=== PATIENT | male | born 1970 | race Caucasian/White ===

== ENCOUNTER 2016-07-25 12:09 | Inpatient (IN) | payer BC ==
[~2016-07-25] VITALS: Ht 177.8 cm; Wt 66.7 kg
[2016-07-25 12:23] VITALS: BP 177/98
--- NOTE | 2016-07-25 12:36 | NUR ---
Patient ambualted to bed 6.
[2016-07-25] MEDS ORDERED: fentaNYL 0.05 MG/ML VIAL IVP ONE (12:40)
--- NOTE | 2016-07-25 12:44 | NUR ---
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 EVEN AND UNLABORED,LAB AT BEDSIDE AT THIS TIME
--- NOTE | 2016-07-25 12:51 | NUR ---
xray at bedside
[2016-07-25 12:56] LABS: BASOPHILS # (AUTO) 0.1 K/uL (0.00-0.22); BASOPHILS % (AUTO) 0.9 % (0.0-2.0); EOSINOPHILS # (AUTO) 0.5 K/uL (0-0.4); EOSINOPHILS % (AUTO) 5.1 % (0.0-4.0); HEMATOCRIT 34.9 % (36-52); HEMOGLOBIN 11.8 g/dL (12.0-18.0); LYMPHOCYTES # (AUTO) 1.8 K/uL (2.0-11.5); LYMPHOCYTES % (AUTO) 19.5 % (20.5-51.1); MEAN CORPUSCULAR HEMOGLOBIN 28 pg (27-31); MEAN CORPUSCULAR HGB CONC 34 g/dL (33-37); MEAN CORPUSCULAR VOLUME 84 fL (80-94); MONOCYTES # (AUTO) 0.8 K/uL (0.8-1.0); MONOCYTES % (AUTO) 8.4 % (1.7-9.3); NEUTROPHILS % (AUTO) 66.1 % (42.2-75.2); PLATELET COUNT (AUTO) 227 K/uL (140-450); RED BLOOD CELL COUNT(AUTO) 4.17 MIL/uL (4.20-6.10); RED CELL DISTRIBUTION WIDTH 13.4 % (11.6-13.7); WHITE BLOOD COUNT (AUTO) 9.2 K/uL (4.8-10.8)
[2016-07-25 13:12] LABS: ANION GAP 14.2 (8-16); CALCIUM 9.4 mg/dL (8.5-10.1); CARBON DIOXIDE 25.7 mmol/L (21-32); CREATININE 1.4 mg/dL (0.6-1.3); POTASSIUM 3.9 mmol/L (3.5-5.1)
[2016-07-25] MEDS ORDERED: ASPIRIN 325 MG TAB PO ONE (13:15)
[2016-07-25 13:17] LABS: ALBUMIN 3.3 g/dL (3.4-5.0); TOTAL BILIRUBIN 0.6 mg/dL (0.0-1.0); TOTAL PROTEIN, SERUM 7.2 g/dL (6.4-8.2)
[2016-07-25] MEDS ORDERED: NACL 0.9% 1,000 ML IV SCH (13:17)
[2016-07-25] MEDS ORDERED: ACETAMINOPHEN 325 MG TAB PO PRN (13:20)
[2016-07-25] MEDS ORDERED: HYDROcodone/APAP 5/325 MG 1 TAB TAB PO PRN (13:20)
[2016-07-25] MEDS ORDERED: ONDANSETRON 4 MG/2 ML VIAL IVP PRN (13:20)
[2016-07-25] MEDS ORDERED: MORPHINE SULFATE 2 MG/ML SYR IVP PRN (13:20)
[2016-07-25] MEDS ORDERED: NITROGLYCERIN 0.4 MG TAB SL PRN (13:20)
[2016-07-25 13:23] LABS: INR 1.2 (0.8-1.2); PARTIAL THROMBOPLASTIN TIME 27.6 secs (22-35.6); PROTHROMBIN TIME 10.9 secs (10.8-13.4)
--- NOTE | 2016-07-25 13:29 | NUR ---
PT AAO, NO C/O PAIN NOTED.
--- NOTE | 2016-07-25 13:42 | NUR ---
DR. SARGENT AWARE PT WANTS TO TALK TO HIM
[2016-07-25] MEDS ORDERED: LISINOPRIL 10 MG TAB PO SCH (14:00)
[2016-07-25] MEDS ORDERED: ATORVASTATIN 20 MG TAB PO SCH (14:00)
[2016-07-25] MEDS ORDERED: METOPROLOL 25 MG TAB PO SCH ×2 (14:00→21:00)
--- NOTE | 2016-07-25 14:52 | NUR ---
report given to ry jeter will be transfer to tele
--- NOTE | 2016-07-25 15:00 | NUR ---
PT ARRIVED TO UNIT FROM ER VIA [facility]. AAOX4, ON ROOM AIR, SKIN INTACT. IV TO LEFT WRIST 22G, SKIN INTACT. INITIAL ASSESSMENT COMPLETED. REVIEWED PLAN OF CARE WITH PT, PT VERBALIZED UNDERSTANDING. ALL SAFETY NEEDS MET. CALL LIGHT WITHIN REACH. WILL CONTINUE TO MONITOR.
[2016-07-25] MEDS ORDERED: METF500T PO (15:05)
[2016-07-25] MEDS ORDERED: ATOR10TA PO (15:05)
[2016-07-25 15:10] VITALS: BP 162/96
[2016-07-25] MEDS ORDERED: DEXTROSE 50% 50 ML SYR IVP PRN (15:55)
[2016-07-25] MEDS ORDERED: INSULIN LISPRO SLIDING SCALE 100 UNITS/ML VIAL SUBQ PRN (15:55)
[2016-07-25 16:00] VITALS: BP 163/94
[2016-07-25] MEDS ORDERED: FUROSEMIDE 40 MG/4 ML VIAL IVP SCH (16:10)
[2016-07-25] MEDS: LISINOPRIL 5 MG TAB PO SCH (16:11)
[2016-07-25] MEDS: BLOOD GLUCOSE MONITORING 1 DEV DEV FS SCH ×2 (16:30→20:14)
--- NOTE | 2016-07-25 16:45 | NUR ---
PT STATES NO CHEST PAIN OR DISCOMFORT AT THIS TIME. ALL NEEDS MET. CALL LIGHT WITHIN RAECH. WILL CONTINUE TO MONITOR.
[2016-07-25] MEDS: metFORMIN 500 MG TAB PO SCH (17:18)
[2016-07-25 17:20] LABS: FREE T4 (FREE THYROXINE) 1.18 ng/dL (0.76-1.46); THYROID STIMULATING HORMONE 2.11 uIU/mL (0.34-3.76)
--- NOTE | 2016-07-25 18:05 | NUR ---
PT CURRENTLY SITTING AT BEDSIDE EATING DINNER. ALL NEEDS MET. CALL LIGHT WITHIN RAECH. WILL CONTINUE TO MONITOR.
--- NOTE | 2016-07-25 19:25 | NUR ---
ENDORSED PLAN OF CARE TO NIGHT NURSE. PT IN STABLE CONDITION, FAMILY AT BEDSIDE.
--- NOTE | 2016-07-25 19:26 | NUR ---
RECEIVED PT IN STABLE CONDITION FROM JAQUI ISAAC. NO SOB, NO SIGNS OF DISTRESS. PT IS AOX4, AMBULATORY. VS STABLE ON ROOM AIR. SKIN IS INTACT. IV TO LT WRIST 22G PATENT, ASYMPTOMATIC, INTACT, IVF RUNNING. PT DENIES PAIN AT THIS TIME. FAMILY AT BEDSIDE. PLAN OF CARE DISCUSSED WITH PT. SAFETY MEASURES IN PLACE. CALL LIGHT WITHIN REACH. WILL CONTINUE TO MONITOR.
--- NOTE | 2016-07-25 19:40 | NUR ---
MD PEREZ AT BEDSIDE EVALUATING PT. MS STATED TO DC FLUIDS, HEP LOCK PT AND F/U FOR NEW MEDICATION ORDERS. WILL F/U.
[2016-07-25 20:00] VITALS: BP 154/96
[2016-07-25] MEDS: SODIUM CHLORIDE FLUSH 10 ML SYR IVF SCH (20:10)
[2016-07-25] MEDS: CARVEDILOL 3.125 MG TAB PO SCH (20:10)
--- NOTE | 2016-07-25 20:14 | NUR ---
PT TOLERATED DUE MEDS WELL. NO SOB, NO SIGNS OF DISTRESS. IV SITE ASYMPTOMATIC, INTACT, PATENT, SALINE LOCKED. BLOOD SUGAR 143, NO COVERAGE NEEDED. PT DENIES PAIN AT THIS TIME. PLAN OF CARE DISCUSSED WITH PT. SAFETY MEASURES IN PLACE. CALL LIGHT WITHIN REACH. WILL CONTINUE TO MONITOR.
--- NOTE | 2016-07-25 22:24 | NUR ---
PT ASLEEP IN BED. NO SOB, NO SIGNS OF DISTRESS. IV SITE ASYMPTOMATIC, INTACT, SALINE LOCKED. SAFETY MEASURES IN PLACE. CALL LIGHT WITHIN REACH. WILL CONTINUE TO MONITOR.
[2016-07-26] VITALS (9 sets, daily range): BP systolic 140–153; BP diastolic 78–90
--- NOTE | 2016-07-26 | NUR ---
VS STABLE ON ROOM AIR. NO SOB, NO SIGNS OF DISTRESS. IV SITE ASYMPTOMATIC, INTACT, PATENT, SALINE LOCKED. PT DENIES PAIN AT THIS TIME. PLAN OF CARE DISCUSSED WITH PT. SAFETY MEASURES IN PLACE. CALL LIGHT WITHIN REACH. WILL CONTINUE TO MONITOR.
--- NOTE | 2016-07-26 02:12 | NUR ---
PT ASLEEP IN BED. NO SOB, NO SIGNS OF DISTRESS. IV SITE ASYMPTOMATIC, INTACT, PATENT, SALINE LOCKED. SAFETY MEASURES IN PLACE. CALL LIGHT WITHIN REACH. WILL CONTINUE TO MONITOR.
--- NOTE | 2016-07-26 04:07 | NUR ---
VS STABLE ON ROOM AIR. PT DENIES PAIN AT THIS TIME. NO SOB, NO SIGNS OF DISTRESS. IV SITE ASYMPTOMATIC, INTACT, SALINE LOCKED. PLAN OF CARE DISCUSSED WITH PT. SAFETY MEASURES IN PLACE. CALL LIGHT WITHIN REACH. WILL CONTINUE TO MONITOR.
[2016-07-26] MEDS: SODIUM CHLORIDE FLUSH 10 ML SYR IVF SCH ×3 (04:21→20:50)
[2016-07-26 05:40] LABS: BASOPHILS % (AUTO) 0.5 % (0.0-2.0); EOSINOPHILS # (AUTO) 0.5 K/uL (0-0.4); EOSINOPHILS % (AUTO) 6.4 % (0.0-4.0); HEMATOCRIT 35.9 % (36-52); HEMOGLOBIN 12.1 g/dL (12.0-18.0); LYMPHOCYTES # (AUTO) 1.8 K/uL (2.0-11.5); LYMPHOCYTES % (AUTO) 20.7 % (20.5-51.1); MEAN CORPUSCULAR HEMOGLOBIN 28 pg (27-31); MEAN CORPUSCULAR HGB CONC 34 g/dL (33-37); MEAN CORPUSCULAR VOLUME 84 fL (80-94); MONOCYTES # (AUTO) 0.9 K/uL (0.8-1.0); MONOCYTES % (AUTO) 10.1 % (1.7-9.3); NEUTROPHILS # (AUTO) 5.3 K/uL (1.8-7.7); NEUTROPHILS % (AUTO) 62.3 % (42.2-75.2); PLATELET COUNT (AUTO) 205 K/uL (140-450); RED BLOOD CELL COUNT(AUTO) 4.26 MIL/uL (4.20-6.10); RED CELL DISTRIBUTION WIDTH 12.5 % (11.6-13.7); WHITE BLOOD COUNT (AUTO) 8.5 K/uL (4.8-10.8)
[2016-07-26 05:59] LABS: ANION GAP 11.3 (8-16); CALCIUM 9.3 mg/dL (8.5-10.1); CARBON DIOXIDE 29.6 mmol/L (21-32); CREATININE 1.7 mg/dL (0.6-1.3); POTASSIUM 3.9 mmol/L (3.5-5.1)
[2016-07-26 06:05] LABS: MAGNESIUM 1.6 mg/dL (1.8-2.4); PHOSPHORUS 4.8 mg/dL (2.5-4.9)
[2016-07-26] MEDS: BLOOD GLUCOSE MONITORING 1 DEV DEV FS SCH ×4 (06:45→20:49)
--- NOTE | 2016-07-26 07:14 | NUR ---
ENDORSED PT IN STABLE CONDITION TO JAQUI JACK. ALL NEEDS HAVE BEEN MET AT THIS TIME.
--- NOTE | 2016-07-26 07:20 | NUR ---
RECEIVED PT IN BED. ALERT, AWAKE, ORIENTED X4. NO SOB NOTED. DENIES ANY PAIN OR DISCOMFORT AT THIS TIME. POSITIVE BOWEL SOUNDS NOTED ON FOUR QUADRANTS. DENIES ANY DISCOMFORT WITH BOWEL OR BLADDER ELIMINATION. PT AMBULATORY. SAFETY PRECAUTION IN PLACE. CALL LIGHT WITHIN REACH.
[2016-07-26] MEDS: metFORMIN 500 MG TAB PO SCH ×2 (08:24→17:17)
[2016-07-26] MEDS: FUROSEMIDE 40 MG/4 ML VIAL IVP SCH (08:25)
[2016-07-26] MEDS: DOCUSATE SODIUM 100 MG GELCAP PO SCH (08:25)
[2016-07-26] MEDS: ATORVASTATIN 20 MG TAB PO SCH (08:25)
[2016-07-26] MEDS: ASPIRIN 81 MG TAB.CHEW PO SCH (08:26)
[2016-07-26] MEDS: CARVEDILOL 3.125 MG TAB PO SCH ×2 (08:26→20:47)
[2016-07-26] MEDS ORDERED: METOPROLOL 25 MG TAB PO SCH ×2 (09:00)
[2016-07-26] MEDS ORDERED: LISINOPRIL 10 MG TAB PO SCH ×3 (09:00→10:30)
[2016-07-26] MEDS: SPIRONOLACTONE 25 MG TAB PO SCH (09:08)
[2016-07-26] MEDS ORDERED: MAG SULF 2000 MG/WATER PREMIX 50 ML IV SCH (09:30)
--- NOTE | 2016-07-26 10:54 | NUR ---
FAXED INITIAL REVIEW TO [facility] [phone] PHONE TIMOTHY [phone] [id number]
--- NOTE | 2016-07-26 15:12 | NUR ---
RECEIVED CALL FROM MALLORIE FROM PHONE [phone]. WANTS REVIEW FAXED TO [phone] TRACKING NUMBER IS [id number]. FAXED INITIAL REVIEW.
--- NOTE | 2016-07-26 16:04 | NUR ---
RECEIVED A CALL FROM HAMZAH FROM . SHE SAID FOR DISCHARGE NEEDS CALL HER AT [phone].
[2016-07-26] MEDS ORDERED: NACL 0.9% 500 ML IV SCH (17:14)
--- NOTE | 2016-07-26 19:30 | NUR ---
RECEIVED REPORT FROM DAY RN AT BEDSIDE, PATIENT IS RESTING IN BED, AAO X4 ON ROOM AIR, NO SOB OR SIGN OF DISTRESS AT THIS TIME, PATIENT DENIES PAIN AT THIS TIME IV IS PATENT AND INTACT, DISCUSSED PLAN OF CARE WITH PATIENT, PATIENT VERBALIZED UNDERSTANDING, SAFETY MEASURES CHECKED, CALL LIGHT WITHIN REACH. WILL CONTINUE TO MONITOR.
--- NOTE | 2016-07-26 19:40 | NUR ---
PT ALERT, AWAKE, ORIENTEDX4. DENIES ANY PAIN OR DISCOMFORT AT THIS TIME. NO SOB. ABLE TO MAKE NEEDS KNOWN. KEPT CLEAN DRY AND COMFORTABLE. ENDORSED TO NEXT SHIFT FOR CONTINUITY OF CARE.
--- NOTE | 2016-07-26 20:51 | NUR ---
PM MEDS ADMINISTERED, PATIENT TOLERATED WELL, BS CHECK 110, CALL LIGHT WITHIN REACH. WILL CONTINUE TO MONITOR.
[2016-07-26 21:04] LABS: HEMOGLOBIN A1C 5.7 % (4.8-5.6)
--- NOTE | 2016-07-26 22:10 | NUR ---
PATIENT RESTING IN BED, NO SOB OR SIGN OF DISTRESS AT THIS TIME, CALL LIGHT WITHIN REACH. WILL CONTINUE TO MONITOR.
[2016-07-27] VITALS: BP 150/96
--- NOTE | 2016-07-27 | NUR ---
VITAL SIGNS STABLE, NO SOB OR SIGN OF DISTRESS AT THIS TIME, CALL LIGHT WITHIN REACH. WILL CONTINUE TO MONITOR.
--- NOTE | 2016-07-27 02:00 | NUR ---
PATIENT SLEEPING, NO SOB OR SIGN OF DISTRESS AT THIS TIME, CALL LIGHT WITHIN REACH. WILL CONTINUE TO MONITOR.
[2016-07-27 04:00] VITALS: BP 146/87
--- NOTE | 2016-07-27 04:00 | NUR ---
VITAL SIGNS STABLE, NO SOB OR SIGN OF DISTRESS, CALL LIGHT WITHIN REACH. WILL CONTINUE TO MONITOR
[2016-07-27] MEDS: SODIUM CHLORIDE FLUSH 10 ML SYR IVF SCH ×2 (05:03→12:00)
[2016-07-27] MEDS: BLOOD GLUCOSE MONITORING 1 DEV DEV FS SCH ×3 (06:31→16:42)
[2016-07-27 07:23] LABS: ANION GAP 11.9 (8-16); CALCIUM 9.4 mg/dL (8.5-10.1); CARBON DIOXIDE 29.9 mmol/L (21-32); CREATININE 1.8 mg/dL (0.6-1.3); POTASSIUM 3.8 mmol/L (3.5-5.1)
[2016-07-27 07:29] LABS: PHOSPHORUS 5.1 mg/dL (2.5-4.9)
--- NOTE | 2016-07-27 07:30 | NUR ---
ENDORSED PATIENT TO DAY RN AT BEDSIDE, PATIENT IN STABLE CONDITION
--- NOTE | 2016-07-27 07:30 | NUR ---
RECEIVED REPORT FROM NIGHT NURSE, PT IS AAOX4, ON ROOM AIR, IV TO LEFT WRIST 22G, SKIN INTACT. PT STATES NO CHEST PAIN OR SOB AT THIS TIME. INITIAL ASSESSMENT COMPLETED. REVIEWED PLAN OF CARE WITH PT, PT VERBALIZED UNDERSTANDING. ALL SAFETY PRECAUTIONS MET. CALL LIGHT WITHIN REACH. WILL CONTINUE TO MONITOR.
[2016-07-27 08:00] VITALS: BP 125/81
[2016-07-27] MEDS: DOCUSATE SODIUM 100 MG GELCAP PO SCH (08:56)
[2016-07-27] MEDS: ASPIRIN 81 MG TAB.CHEW PO SCH (08:56)
[2016-07-27] MEDS: metFORMIN 500 MG TAB PO SCH (08:57)
[2016-07-27] MEDS: FUROSEMIDE 40 MG/4 ML VIAL IVP SCH (08:58)
[2016-07-27] MEDS ORDERED: LISINOPRIL 20 MG TAB PO SCH (09:00)
[2016-07-27] MEDS: SPIRONOLACTONE 25 MG TAB PO SCH (09:00)
[2016-07-27] MEDS: CARVEDILOL 3.125 MG TAB PO SCH (09:00)
--- NOTE | 2016-07-27 09:00 | NUR ---
DUE MEDICATIONS GIVEN. PT TOLERATED WELL. ALL NEEDS MET. CALL LIGHT WITHIN REACH. WILL CONTINUE TO MONITOR.
[2016-07-27] MEDS ORDERED: NACL 0.9% 500 ML IV SCH (09:10)
[2016-07-27] MEDS: ATORVASTATIN 20 MG TAB PO SCH (09:24)
--- NOTE | 2016-07-27 11:05 | NUR ---
PT CURRENTLY RESTING IN BED. ALL NEEDS MET. CALL LIGHT WITHIN REACH, WILL CONTINUE TO MONITOR.
[2016-07-27 12:00] VITALS: BP 121/81
[2016-07-27] MEDS ORDERED: FURO-572 PO (13:44)
[2016-07-27] MEDS ORDERED: LISI-420 PO (13:44)
[2016-07-27] MEDS ORDERED: NITR0.4T1 SL (13:44)
[2016-07-27] MEDS ORDERED: ASPI81CT27 PO (13:44)
[2016-07-27] MEDS ORDERED: SPIR25TA PO (13:44)
[2016-07-27] MEDS ORDERED: CARV3.122 PO (13:44)
[2016-07-27] MEDS ORDERED: ATOR20TA40 PO (13:46)
[2016-07-27] MEDS ORDERED: OMEP20TC24 PO (13:46)
--- NOTE | 2016-07-27 13:55 | NUR ---
PT CURRENTLY ON PHONE, NO S/S OF DISTRESS NOTED. ALL NEEDS MET, CALL LIGHT WITHIN REACH. WILL CONTINUE TO MONITOR.
[2016-07-27 14:51] LABS: ANION GAP 10.4 (8-16); CARBON DIOXIDE 29.2 mmol/L (21-32); CREATININE 1.8 mg/dL (0.6-1.3); POTASSIUM 3.6 mmol/L (3.5-5.1)
--- NOTE | 2016-07-27 15:52 | NUR ---
DISCUSSED DISCHARGE PLAN WITH PT, PT VERBALIZED UNDERSTANDING.
[2016-07-27 15:59] VITALS: BP 127/88
--- NOTE | 2016-07-27 16:25 | NUR ---
PT SIGNED ALL DISCHARGE PAPERWORK, DISCHARGE EDUCATION GIVEN, PT VERBALIZED UNDERSTANDING. PRESCRIPTIONS GIVEN AND FOLLOW UP INFORMATION. IV REMOVED TIP INTACT, ALL PERSONAL BELONGINGS WITH PT. AT BEDSIDE.
--- NOTE | 2016-07-27 16:30 | NUR ---
PT WAS WALKED OUT TO FRONT LOBBY IN STABLE CONDITION
== END 2016-07-27 14:30 | disposition home or self-care (01) | DRG 391 ==
LOC: MED 12:09 → MTU 14:45
PROVIDERS: ADMIT Family Medicine; ATTEND Family Medicine
DX: K21.9 Gastro-esophageal reflux disease without esophagitis (principal); N17.0 Acute kidney failure with tubular necrosis; I50.43 Acute on chronic combined systolic (congestive) and diastolic (congestive) heart failure; I24.8 Other forms of acute ischemic heart disease; I42.0 Dilated cardiomyopathy; I11.0 Hypertensive heart disease with heart failure; E11.9 Type 2 diabetes mellitus without complications; I34.0 Nonrheumatic mitral (valve) insufficiency; I07.1 Rheumatic tricuspid insufficiency; E83.42 Hypomagnesemia; I27.2 Other secondary pulmonary hypertension; E78.00 Pure hypercholesterolemia, unspecified; I25.10 Atherosclerotic heart disease of native coronary artery without angina pectoris; I48.91 Unspecified atrial fibrillation; Z91.19 Patient's noncompliance with other medical treatment and regimen; Z87.891 Personal history of nicotine dependence
CPT/HCPCS: 36415; 71010; 80048; 80053; 82550; 82553; 82948; 83036; 83735; 83880; 84100; 84436; 84439; 84443; 84479; 84484; 85025; 85610; 85730; 86886; 86900; 86901; 87081; 93005; 93925; 93970; 99285; J1815; J1940; J3010; J3475; J7030; Q0092